=== PATIENT | male | born 1945 | race Caucasian/White ===

== ENCOUNTER 2021-05-21 15:49 | Outpatient (CLI) | payer MEDICARE ==
[2021-05-21 17:09] LABS: #Basophils 0.1 10x3/uL (0.0-0.2); #Eosinphils 0.4 10x3/uL (0.0-0.5); #Monocytes 0.7 10x3/uL (0.0-1.1); #Neutrophils 4.4 10x3/uL (1.5-8.4); %Eosinophils 4.3 % (0.0-6.0); %Lymphocytes 32.4 % (18.0-47.0); %Monocytes 8.4 % (0.0-10.0); %Neutrophils 53.5 % (40.0-75.0); Hemoglobin 12.9 g/dL (13.5-17.5); Mean Corpuscular HGB CONC 31.9 g/dL (32.0-36.0); Mean Corpuscular Hemoglobin 31.4 pg (27.0-33.0); Mean Corpuscular Volume 98.3 fl (81.2-95.1); Mean Platelet Volume 12.3 fl (7.4-10.4); Platelet Count 192 10x3/uL (150-450); RBC Distribution Width 13.6 % (11.5-14.5); Red Blood Cell (RBC) Count 4.11 10x6/uL (4.32-5.72); White Blood Cell (WBC) Count 8.3 10x3/uL (3.5-10.5)
[2021-05-21 17:24] LABS: ALT (SGPT) 22 U/L (8-55); AST (SGOT) 22 U/L (5-34); Albumin 4.3 g/dL (3.4-4.8); Alkaline Phosphatase 80 U/L (40-110); Anion Gap 12 mmol/L (10-20); BUN (Urea Nitrogen) 22 mg/dL (8.4-25.7); Bilirubin, Total 0.3 mg/dL (0.2-1.2); Calc. Creatinine Clearance 0 mL/min (70-130); Calcium 9.9 mg/dL (7.8-10.44); Carbon Dioxide 26 mmol/L (23-31); Chloride 107 mmol/L (98-107); Globulin 2.9 g/dL (2.4-3.5); Glucose 118 mg/dL (83-110); Potassium 4.4 mmol/L (3.5-5.1); Protein, Total 7.2 g/dL (5.8-8.1); Sodium 141 mmol/L (136-145)
[2021-05-22 12:43] LABS: SARS-CoV-2 PCR by NAA Not Detected (NotDetected)
== END 2021-05-21 15:50 | disposition home or self-care (01) ==
LOC: LABBT 15:49
PROVIDERS: ATTEND Surgery
DX: Z01.812 Encounter for preprocedural laboratory examination (principal); K40.90 Unilateral inguinal hernia, without obstruction or gangrene, not specified as recurrent; Z20.822 Contact with and (suspected) exposure to COVID-19
CPT/HCPCS: 80053; 85025; U0003; U0005

== ENCOUNTER 2021-05-26 07:25 | Day surgery (SDC) | payer MEDICARE ==
[2021-05-23 12:54] VITALS: BMI 22.8
[2021-05-26] MEDS ORDERED: Lidocaine 1% w/Epinephrine 1:100K 20 ML VIAL ONE (09:02)
[2021-05-26] MEDS ORDERED: Bupivacaine 0.25% HCL 30 ML VIAL ONE (09:02)
[2021-05-26] MEDS ORDERED: Fentanyl 100 MCG/2 ML VIAL ONE ×2 (09:12)
[2021-05-26] MEDS ORDERED: Lidocaine 1% PF 5 ML VIAL ONE (09:26)
[2021-05-26] MEDS ORDERED: Ondansetron PF 4 MG/2 ML Vial ONE (09:26)
[2021-05-26] MEDS ORDERED: Ketorolac Tromethamine 30 MG/ML VIAL ONE (09:26)
[2021-05-26] MEDS ORDERED: Dexamethasone 20 MG/5 ML VIAL ONE (09:26)
[2021-05-26] MEDS ORDERED: PROPOFOL 200 MG/20 ML VIAL ONE (09:26)
[2021-05-26] MEDS ORDERED: ePHEDrine Sulfate 50 MG/10 ML VIAL ONE (11:43)
== END 2021-05-26 13:05 | disposition home or self-care (01) ==
LOC: SDC 07:25
PROVIDERS: ATTEND Surgery
PROC: 0YU50JZ Supplement Right Inguinal Region with Synthetic Substitute, Open Approach (ICD-10-PCS; principal; 2021-05-26)
DX: K40.90 Unilateral inguinal hernia, without obstruction or gangrene, not specified as recurrent (principal)
CPT/HCPCS: C1781; J0690; J1100; J1885; J2405; J2704; J3010; S0020

== ENCOUNTER 2023-04-14 07:03 | Day surgery (SDC) | payer MEDICARE ==
[2023-04-12 15:09] VITALS: BMI 21.6
[2023-04-14] MEDS ORDERED: Sodium Chloride 0.9% 100 ML ONE ×2 (08:43→09:41)
[2023-04-14] MEDS ORDERED: CEFAZOLIN 2 GM VIAL ONE ×2 (08:43→09:41)
[2023-04-14 09:25] LABS: Albumin 4.1 g/dL (3.4-4.8)
[2023-04-14 09:26] LABS: Calcium 9.5 mg/dL (7.8-10.44); Chloride 106 mmol/L (98-107); Potassium 4.8 mmol/L (3.5-5.1); Sodium 138 mmol/L (136-145)
[2023-04-14 09:27] LABS: Globulin 3.3 g/dL (2.4-3.5); Glucose 98 mg/dL (83-110); Protein, Total 7.4 g/dL (5.8-8.1)
[2023-04-14 09:28] LABS: Anion Gap 15 mmol/L (10-20); Carbon Dioxide 22 mmol/L (23-31)
[2023-04-14] MEDS ORDERED: fentaNYL PF 100 MCG/2 ML SYRINGE ONE (09:28)
[2023-04-14 09:29] LABS: Bilirubin, Total 0.6 mg/dL (0.2-1.2)
[2023-04-14 09:30] LABS: Alkaline Phosphatase 81 U/L (40-110); Calc. Creatinine Clearance 47 mL/min (70-130); Estimated GFR 56
[2023-04-14 09:31] LABS: BUN (Urea Nitrogen) 17 mg/dL (8.4-25.7)
[2023-04-14 09:32] LABS: AST (SGOT) 20 U/L (5-34)
[2023-04-14 09:33] LABS: ALT (SGPT) 14 U/L (8-55)
[2023-04-14] MEDS ORDERED: Bupivacaine 0.25% HCL 30 ML VIAL ONE (09:34)
[2023-04-14] MEDS ORDERED: EPINEPHrine 1 MG/ML AMP ONE (09:34)
[2023-04-14] MEDS ORDERED: Lidocaine 1% PF 5 ML VIAL ONE (09:41)
[2023-04-14] MEDS ORDERED: PROPOFOL 200 MG/20 ML VIAL ONE (09:41)
[2023-04-14] MEDS ORDERED: NEOSTIGMINE 3 MG/3 ML SYR 3 MG/3 ML SYRINGE ONE (09:41)
[2023-04-14] MEDS ORDERED: Ondansetron PF 4 MG/2 ML Vial ONE (09:41)
[2023-04-14] MEDS ORDERED: Dexamethasone 20 MG/5 ML VIAL ONE (09:41)
[2023-04-14] MEDS ORDERED: Ketorolac Tromethamine 30 MG/ML VIAL ONE (09:41)
[2023-04-14] MEDS ORDERED: Glycopyrrolate 0.2 MG/ML 5 ML SYRINGE ONE (09:41)
[2023-04-14] MEDS ORDERED: Rocuronium Bromide 10 MG/ML (10ML VIAL) ONE (09:41)
[2023-04-14] MEDS ORDERED: ePHEDrine Sulfate 50 MG/10 ML VIAL ONE (09:41)
== END 2023-04-14 13:55 | disposition home or self-care (01) ==
LOC: SDC 07:03
PROVIDERS: ATTEND Surgery
PROC: 0YU647Z Supplement Left Inguinal Region with Autologous Tissue Substitute, Percutaneous Endoscopic Approach (ICD-10-PCS; principal; 2023-04-14)
DX: K40.90 Unilateral inguinal hernia, without obstruction or gangrene, not specified as recurrent (principal)
CPT/HCPCS: 49650; 80053; C1781; J0171; J1100; J1885; J2405; J2704; J3490; S0020